=== PATIENT | male | born 1970 | race Two or more races ===

== ENCOUNTER → 2018-02-07 | Outpatient (CLI) | payer OTHER | LOC: CIMAGING 14:56 | PROVIDERS: ATTEND Physician Assistant Medical | DX: S62.634A Displaced fracture of distal phalanx of right ring finger, initial encounter for closed fracture (principal) | CPT/HCPCS: 73140-PO ==

== ENCOUNTER → 2018-05-22 | Outpatient (CLI) | payer BC | LOC: EMCIMAGING 15:56 | PROVIDERS: ATTEND Family Medicine | DX: J40 Bronchitis, not specified as acute or chronic (principal) | CPT/HCPCS: 71046-PN ==

== ENCOUNTER → 2018-08-14 | Outpatient (CLI) | payer BC | LOC: FIMAGING 13:39 ==